=== PATIENT | male | born 1995 | race Caucasian/White ===

== ENCOUNTER 2021-03-27 11:38 | Emergency (ER) | payer BC, MEDICAID ==
[~2021-03-27] VITALS: Ht 188 cm; Wt 127.0 kg
--- NOTE | 2021-03-27 11:41 | NUR ---
at bedside for assessment
[2021-03-27] MEDS ORDERED: IBUPROFEN 600 MG TABLET PO ONE (11:45)
[2021-03-27] MEDS ORDERED: IBUPROFEN 600 MG TABLET ONE (11:57)
--- NOTE | 2021-03-27 11:57 | NUR ---
urine sent to lab at this time
[2021-03-27 12:07] LABS: *BILIRUBIN,URIN NEGATIVE (NEGATIVE); *BLOOD, URINE NEGATIVE (NEGATIVE); *CLARITY,URINE CLEAR (CLEAR); *COLOR,URINE YELLOW (YELLOW); *KETONES,URINE NEGATIVE (NEGATIVE); *UROBILINOGEN,URINE 0.2 E.U./dl (NORMAL); LEUKOCYTE ESTERASE ,URINE NEGATIVE (NEGATIVE); NITRITE, URINE NEGATIVE (NEGATIVE); UGLUCOSE NEGATIVE (NEGATIVE)
[2021-03-27] MEDS ORDERED: IBUP-1955 PO (13:14)
[2021-03-27] MEDS ORDERED: NAPR-1164 PO (13:22)
--- NOTE | 2021-03-27 13:25 | NUR ---
Patient discharged to home in stable condition. No signs of acute distress noted. Written and verbal after care instructions given. Patient verbalizes understanding of instructions. Stressed follow up or return to ER for worsening s/s.
[2021-03-27 13:55] VITALS: BP 137/66
[2021-03-29 18:06] LABS: *GC NAA Negative (Negative)
== END 2021-03-27 13:25 | disposition home or self-care (01) ==
LOC: ER 11:38
DX: N50.812 Left testicular pain (principal); N50.3 Cyst of epididymis; R03.0 Elevated blood-pressure reading, without diagnosis of hypertension
CPT/HCPCS: 76870; 87491; A4663